=== PATIENT | male | born 1945 | race Caucasian/White ===

== ENCOUNTER 2018-02-25 15:49 | Emergency (ER) | payer BC, MEDICARE ==
[~2018-02-25 15:49] MED LIST: Calcium Chloride 1 GM/10 ML Abboject SYRINGE ONE; EPINEPHrine 1 MG/10 ML Abboject SYRINGE ONE
--- NOTE | 2018-02-25 16:28 | RAD ---
SINGLE VIEW OF CHEST: Date: 02/25/18 HISTORY: Status post CPR. Respiratory failure. FINDINGS: Single view of the chest shows a normal sized cardiomediastinal silhouette. There is an endotracheal tube with its tip between the clavicles. There is increased opacity of the left thorax, which could r epresent a layering pleural effusion. No obvious pneumothorax is seen. IMPRESSION: 1. Appropriate positioning of endotracheal tube. 2. Possible layering left pleura effusion. POS: [id number]
== END 2018-02-25 16:15 | disposition expired ==
LOC: ERS 15:49 → EDBD 15:49 → EDUNIT# 15:49 → ERS 16:15
DX: I46.9 Cardiac arrest, cause unspecified (principal)
CPT/HCPCS: 51702; 71045; 92950; 96374; 96375; J0171